=== PATIENT | male | born 1975 | race Caucasian/White ===

== ENCOUNTER 2017-01-09 20:19 | Emergency (ER) | payer MEDICAID, MEDICARE, OTHER ==
[~2017-01-09] VITALS: Ht 175.3 cm; Wt 70.0 kg
[~2017-01-09 20:19] MED LIST: ARIP1TAB12 PO; BENZ1 PO
[2017-01-09 20:21] VITALS: BP 163/94; PULSE 92; RESP 16; TEMP 99.3; O2SAT 98
--- NOTE | 2017-01-09 21:33 | PD ---
Physical Exam Date Seen by Provider: Jan 09, 2017 Time Seen by Provider: 21:31 Narrative 41 yo male here for evaluation of fever. Going on since yesterday. States feels like chills, possibly dehydrated per patient. Urine is dark. Fatigued. Nauseous and has vomited a couple of times. No pain. No sick contacts. Vitals sign stable. Patient awaiting bed placement. Data Data Last Documented VS Vital Signs Date Time Temp Pulse Resp B/P Pulse Ox O2 Delivery O2 Flow Rate FiO2 01/09/17 20:21 99.3 92 16 163/94 98 Room Air [facility] Medical Record Reviewed: Yes Supervised Visit with SANDOVAL: Yoni Shelley Jan 09, 2017 21:33
[2017-01-10] MEDS ORDERED: BACT800T5 PO (17:05)
[2017-01-10] MEDS ORDERED: MUPI2%T TOPICAL (17:05)
== END 2017-01-09 23:22 | disposition left against medical advice (07) ==
LOC: NED 20:19
DX: R50.9 Fever, unspecified (principal)
CPT/HCPCS: 99281

== ENCOUNTER 2017-01-10 15:37 | Emergency (ER) | payer MEDICARE, OTHER ==
[~2017-01-10] VITALS: Ht 177.8 cm; Wt 80.0 kg
[2017-01-10 15:39] VITALS: BP 154/96; PULSE 96; RESP 16; TEMP 98.6; O2SAT 98
[2017-01-10] MEDS ORDERED: BACT800T5 PO (17:05)
[2017-01-10] MEDS ORDERED: MUPI2%T TOPICAL (17:05)
--- NOTE | 2017-01-10 17:05 | PD ---
HPI Chief Complaint: Skin Problem Time Seen by Provider: 16:51 Travel History International Travel<30 days: No Contact w/Intl Traveler<30days: No Traveled to known affect area: No History of Present Illness HPI 41-year-old male presents emergency Department with 2 small skin abscesses to the right index finger and left first phalanx PIP knuckle. Patient states that he drained himself with a pin with pus draining from them earlier today. He is here again and checked to see if they need some more drainage or antibiotics. He has no significant pain. He has no fever, chills, or history of MRSA in the past. She states it started about a week ago after working on a toilet. He is allergic to Haldol, haloperidol, Risperdal, Tegretol. PFSH Past Medical History Bipolar Disorder: Yes Cardiovascular Problems: No Diabetes: No Diminished Hearing: No Musculoskeletal: Yes (REPORTS LEFT ARM DISABILITY) Immunizations Current: Yes Schizophrenia: Yes Past Surgical History Appendectomy: Yes Social History Alcohol Use: Yes Tobacco Use: Yes Substance Use: Yes Allergies-Medications (Allergen,Severity, Reaction): Coded Allergies: Haldol (Verified Allergy, Severe, resp distress, tongue swells, 01/09/17) Tegretol (Verified Allergy, Intermediate, SOB, 01/09/17) Haloperidol (Unverified Allergy, Unknown, 01/09/17) Risperdal (Unverified Allergy, Unknown, 01/09/17) Uncoded Allergies: UNKNOWN MEDS (Adverse Reaction, Intermediate, PSYCH MEDS-UNKNOWN, 10/03/13) Reported Meds & Prescriptions Reported Meds & Active Scripts Active Benztropine Mesylate 1 Mg Tab 1 Mg PO Q12HR PRN Aripiprazole 10 Mg Tab 10 Mg PO DAILY 15 Days Review of Systems Except as stated in HPI: all other systems reviewed are Neg General / Constitutional: No: Fever Eyes: No: Visual changes HENT: No: Headaches Cardiovascular: No: Chest Pain or Discomfort Respiratory: No: Shortness of Breath Gastrointestinal: No: Abdominal Pain Genitourinary: No: Dysuria Musculoskeletal: No: Pain Skin: No Rash Neurologic: No: Weakness Psychiatric: No: Depression Endocrine: No: Polydipsia Hematologic/Lymphatic: No: Easy Bruising Physical Exam Narrative GENERAL: Patient appears no acute distress. SKIN: Warm and dry. Patient is a hard superficial inclusion cyst to the right MP joint on the right second phalanx. There is no obvious abscess or pointing. Area was explored with a #11 blade without obvious drainage. Patient has secondary similar cyst to the left dorsal PIP joint of the second phalanx which again was explored with a #11 blade without expressible pus. HEAD: Atraumatic. Normocephalic. EYES: Pupils equal and round. No scleral icterus. No injection or drainage. ENT: No nasal bleeding or discharge. Mucous membranes pink and moist. Pharynx is clear. NECK: Trachea midline and neck is supple. CARDIOVASCULAR: Regular rate and rhythm. RESPIRATORY: No accessory muscle use. Clear to auscultation. Breath sounds equal bilaterally. MUSCULOSKELETAL: Extremities without clubbing, cyanosis, or edema. No obvious deformities. NEUROLOGICAL: Awake and alert. No obvious cranial nerve deficits. Motor grossly within normal limits. Five out of 5 muscle strength in the arms and legs. Normal speech. PSYCHIATRIC: Appropriate mood and affect; insight and judgment normal. Data Data Last Documented VS Vital Signs Date Time Temp Pulse Resp B/P Pulse Ox O2 Delivery O2 Flow Rate FiO2 01/10/17 15:39 98.6 96 16 154/96 98 MDM Medical Decision Making Medical Screen Exam Complete: Yes Emergency Medical Condition: Yes Differential Diagnosis Inclusion cyst. Cellulitis. Abscess. Narrative Course Patient will be treated with Bactrim DS twice a day 7 days. Patient also use Bactroban ointment to the lesions twice daily as discussed. Patient follow-up as needed. Diagnosis Primary Impression: Abscess Referrals: [facility] [address] Patient Instructions: General Instructions Additional Instructions: Patient will be treated with Bactrim DS twice a day 7 days. Patient also use Bactroban ointment to the lesions twice daily as discussed. Patient follow-up as needed. Med/Other Pt SpecificInfo: Prescription(s) given Disposition: DISCHARGE HOME Condition: Stable Tom Royal Jan 10, 2017 17:05
== END 2017-01-10 17:26 | disposition home or self-care (01) ==
LOC: NEPK 15:37
DX: L02.511 Cutaneous abscess of right hand (principal); Z72.0 Tobacco use
CPT/HCPCS: 99284

== ENCOUNTER 2017-01-19 09:57 | Emergency (ER) | payer MEDICARE, OTHER ==
[~2017-01-19] VITALS: Ht 175.3 cm; Wt 78.0 kg
[~2017-01-19 09:57] MED LIST changes: +BACT800T5 PO; +MUPI2%T TOPICAL
[2017-01-19 10:00] VITALS: BP 139/98; PULSE 98; RESP 16; TEMP 99.4; O2SAT 96
--- NOTE | 2017-01-19 10:40 | PD ---
HPI Chief Complaint: Skin Problem Time Seen by Provider: 10:35 Travel History International Travel<30 days: No Contact w/Intl Traveler<30days: No Traveled to known affect area: No History of Present Illness HPI 41-year-old male presents to our department with generalized itchy rash since this morning. Patient states she was doing some yard work yesterday and may be having a reaction to something he came in contact 2. Patient also is complaining of a dental pain in the #13 tooth which is been bothersome for the past couple of days. He denies fever, chills, or other symptoms. Patient was recently treated for possible abscess to the right index finger which is improved. He is allergic to Haldol, Risperdal, Tegretol, and many other mental health meds. He states she does not do well with narcotics. PFSH Past Medical History Bipolar Disorder: Yes Cardiovascular Problems: No Diabetes: No Diminished Hearing: No Musculoskeletal: Yes (REPORTS LEFT ARM DISABILITY) Immunizations Current: Yes Schizophrenia: Yes Past Surgical History Appendectomy: Yes Social History Alcohol Use: Yes Tobacco Use: Yes Substance Use: Yes Allergies-Medications (Allergen,Severity, Reaction): Coded Allergies: Haldol (Verified Allergy, Severe, resp distress, tongue swells, 01/19/17) Tegretol (Verified Allergy, Intermediate, SOB, 01/19/17) Haloperidol (Unverified Allergy, Unknown, 01/19/17) Risperdal (Unverified Allergy, Unknown, 01/19/17) Uncoded Allergies: UNKNOWN MEDS (Adverse Reaction, Intermediate, PSYCH MEDS-UNKNOWN, 10/03/13) Reported Meds & Prescriptions Reported Meds & Active Scripts Active Bactroban Topical (Mupirocin) 22 Gm Cream 1 Applic TOPICAL BID Bactrim DS (Sulfamethoxazole-Trimethoprim) 800-160 Mg Tab 1 Tab PO BID Benztropine Mesylate 1 Mg Tab 1 Mg PO Q12HR PRN Aripiprazole 10 Mg Tab 10 Mg PO DAILY 15 Days Review of Systems Except as stated in HPI: all other systems reviewed are Neg General / Constitutional: No: Fever Eyes: No: Visual changes HENT: Positive: Dental Difficulties, No: Headaches Cardiovascular: No: Chest Pain or Discomfort Respiratory: No: Shortness of Breath Gastrointestinal: No: Abdominal Pain Genitourinary: No: Dysuria Musculoskeletal: No: Pain Skin: Positive Rash, Positive Itching Neurologic: No: Weakness Psychiatric: No: Depression Endocrine: No: Polydipsia Hematologic/Lymphatic: No: Easy Bruising Physical Exam Narrative GENERAL: Patient is in no acute distress. SKIN: Warm and dry. Patient has generalized raised erythematous rash consistent with allergic dermatitis. HEAD: Atraumatic. Normocephalic. EYES: Pupils equal and round. No scleral icterus. No injection or drainage. ENT: No nasal bleeding or discharge. Mucous membranes pink and moist. Patient is missing his #13 tooth and has tenderness at the gingiva without signs of abscess currently. Pharynx is clear. Airway is patent. TMs are clear bilaterally. NECK: Trachea midline. Supple nontender without significant lymphadenopathy. No signs Steve angina. CARDIOVASCULAR: Regular rate and rhythm. RESPIRATORY: No accessory muscle use. Clear to auscultation. Breath sounds equal bilaterally. MUSCULOSKELETAL: Extremities without clubbing, cyanosis, or edema. No obvious deformities. NEUROLOGICAL: Awake and alert. No obvious cranial nerve deficits. Motor grossly within normal limits. Five out of 5 muscle strength in the arms and legs. Normal speech. PSYCHIATRIC: Appropriate mood and affect; insight and judgment normal. Data Data Last Documented VS Vital Signs Date Time Temp Pulse Resp B/P Pulse Ox O2 Delivery O2 Flow Rate FiO2 01/19/17 10:00 99.4 98 16 139/98 96 MDM Medical Decision Making Medical Screen Exam Complete: Yes Emergency Medical Condition: Yes Medical Record Reviewed: Yes Differential Diagnosis Dental pain. Dental abscess. Allergic dermatitis. Narrative Course Patient is medically stable at time of exam Patient is given amoxicillin 875 twice a day 10 days for his tooth. Patient is given ibuprofen 800 mg 3 times daily with food #30. Patient is given Benadryl 25 mg one every 6 hours when necessary rash. #30. Patient is to follow-up as needed. Diagnosis Primary Impression: Pain, dental Additional Impression: Dermatitis Referrals: [facility] Patient Instructions: Acute Rash (ED), Dental Abscess (ED), General Instructions Additional Instructions: Patient is given amoxicillin 875 twice a day 10 days for his tooth. Patient is given ibuprofen 800 mg 3 times daily with food #30. Patient is given Benadryl 25 mg one every 6 hours when necessary rash. #30. Patient is to follow-up as needed. Med/Other Pt SpecificInfo: Prescription(s) given Disposition: 01 DISCHARGE HOME Condition: Stable Tom Royal Jan 19, 2017 10:40
[2017-01-19] MEDS ORDERED: IBUP800T23 PO (10:42)
[2017-01-19] MEDS ORDERED: BENA25CA4 PO (10:42)
[2017-01-19] MEDS ORDERED: AMOX875T PO (10:42)
== END 2017-01-19 11:17 | disposition home or self-care (01) ==
LOC: NEPK 09:57
DX: K08.9 Disorder of teeth and supporting structures, unspecified (principal); L30.9 Dermatitis, unspecified; Z72.0 Tobacco use
CPT/HCPCS: 99284

== ENCOUNTER 2017-01-22 12:20 | Emergency (ER) | payer MEDICAID, MEDICARE ==
[~2017-01-22 12:20] MED LIST changes: +AMOX875T PO; -ARIP1TAB12 PO; -BACT800T5 PO; +BENA25CA4 PO; -BENZ1 PO; +IBUP800T23 PO; -MUPI2%T TOPICAL
[2017-01-22 12:22] VITALS: BP 163/93; PULSE 111; RESP 15; TEMP 98.2; O2SAT 99
== END 2017-01-22 13:04 | disposition left against medical advice (07) ==
LOC: NED 12:20
DX: S99.921A Unspecified injury of right foot, initial encounter (principal); X58.XXXA Exposure to other specified factors, initial encounter; Z53.21 Procedure and treatment not carried out due to patient leaving prior to being seen by health care provider
CPT/HCPCS: 99281

== ENCOUNTER 2017-01-23 00:34 | Emergency (ER) | payer MEDICARE ==
[~2017-01-23] VITALS: Ht 175.3 cm; Wt 75.2 kg
[2017-01-23 00:37] VITALS: BP 143/84; PULSE 105; RESP 16; TEMP 98.3; O2SAT 98
== END 2017-01-23 02:45 | disposition left against medical advice (07) ==
LOC: NED 00:34
DX: Z04.3 Encounter for examination and observation following other accident (principal); Z53.21 Procedure and treatment not carried out due to patient leaving prior to being seen by health care provider
CPT/HCPCS: 99281

== ENCOUNTER 2017-01-25 02:20 | Emergency (ER) | payer MEDICARE ==
[~2017-01-25] VITALS: Ht 175.3 cm; Wt 75.0 kg
[2017-01-25 02:21] VITALS: BP 128/79; PULSE 103; RESP 16; TEMP 98.6; O2SAT 96
[2017-01-25] MEDS ORDERED: TETANUS/DIPHTHERIA TOXOID ADULT 0.5 ML VIAL IM ONE (03:00)
--- NOTE | 2017-01-25 03:29 | PD ---
HPI Chief Complaint: Skin Problem Time Seen by Provider: 02:45 Travel History International Travel<30 days: No Contact w/Intl Traveler<30days: No Traveled to known affect area: No History of Present Illness HPI Patient is a 41-year-old male presenting to the emergency department for evaluation of right first toe pain after dropping a gas can on it today. He also presents stating he stepped on a nail 36 hours ago. He reports his last tetanus vaccine was in 2010, the pain in his toe is a 4 out of 10, patient has not taken any medications to alleviate the pain. He is currently on amoxicillin due to an infection in his tooth. He was seen for the tooth pain 2 days ago. He has no other complaints at this time. PFSH Past Medical History Bipolar Disorder: Yes Cardiovascular Problems: No Diabetes: No Diminished Hearing: No Musculoskeletal: Yes (REPORTS LEFT ARM DISABILITY) Immunizations Current: Yes Schizophrenia: Yes Tetanus Vaccination: < 5 Years Influenza Vaccination: No Past Surgical History Appendectomy: Yes (1981) Social History Alcohol Use: Yes (social) Tobacco Use: Yes Substance Use: Yes Allergies-Medications (Allergen,Severity, Reaction): Coded Allergies: Haldol (Verified Allergy, Severe, resp distress, tongue swells, 01/25/17) Tegretol (Verified Allergy, Intermediate, SOB, 01/25/17) Haloperidol (Unverified Allergy, Unknown, 01/25/17) Risperdal (Unverified Allergy, Unknown, 01/25/17) Uncoded Allergies: UNKNOWN MEDS (Adverse Reaction, Intermediate, PSYCH MEDS-UNKNOWN, 10/03/13) Reported Meds & Prescriptions Reported Meds & Active Scripts Active Amoxicillin 875 Mg Tab 875 Mg PO BID Review of Systems Except as stated in HPI: all other systems reviewed are Neg Musculoskeletal: Positive: Pain Skin: Positive Change in Pigmentation Physical Exam Narrative GENERAL: Well-nourished, well-developed patient. SKIN: Focused skin assessment warm/dry. HEAD: Normocephalic. EYES: No scleral icterus. No injection or drainage. NECK: Supple, trachea midline. No JVD or lymphadenopathy. CARDIOVASCULAR: Regular rate and rhythm without murmurs, gallops, or rubs. RESPIRATORY: Breath sounds equal bilaterally. No accessory muscle use. GASTROINTESTINAL: Abdomen soft, non-tender, nondistended. MUSCULOSKELETAL: No cyanosis, mild edema and ecchymosis to the dorsal aspect of the right first toe. There appears to be a puncture wound to the plantar aspect on the ball of the right foot. No erythema or drainage noted, nontender to palpation. BACK: Nontender without obvious deformity. No CVA tenderness. Data Data Last Documented VS Vital Signs Date Time Temp Pulse Resp B/P Pulse Ox O2 Delivery O2 Flow Rate FiO2 01/25/17 02:47 20 01/25/17 02:21 98.6 103 128/79 96 Room Air Orders Tetanus/Diphtheria Tox Adult (Tetanus/Di (01/25/17 03:00) Foot, Complete ([id number]) (01/25/17 03:06) [facility] Medical Decision Making Medical Screen Exam Complete: Yes Emergency Medical Condition: Yes Interpretation(s) Vital Signs Date Time Temp Pulse Resp B/P Pulse Ox O2 Delivery O2 Flow Rate FiO2 01/25/17 02:47 20 01/25/17 02:21 98.6 103 16 128/79 96 Room Air Differential Diagnosis Contusion versus fracture versus retained foreign body versus cellulitis versus Narrative Course Patient is a 41-year-old male presenting for evaluation after he stepped on a nail and dropped a gas can on his big toe. Patient's vital signs are stable, his tetanus vaccine was updated today. He is currently taking amoxicillin due to a dental infection. The nail allegedly went through the sole of the shoe, patient will be prescribed ciprofloxacin. Patient was encouraged to rest, ice, elevate extremity. He was advised that there are no acute findings on his x- ray. He is encouraged to follow-up with his primary doctor or at the [facility]. He was encouraged to return to emergency department for any new or worsening symptoms. Patient is stable for discharge Diagnosis Primary Impression: Contusion, toe Qualified Code: S90.111A - Contusion of right great toe without damage to nail , initial encounter Additional Impression: Puncture wound Referrals: [facility] Primary Care Physician Patient Instructions: Foot Contusion (ED), General Instructions, Puncture Wound (ED) Additional Instructions: Follow-up with your primary doctor or at the [facility] Take medications as directed Continue amoxicillin as previously prescribed Rest, ice, elevate extremity Return to emergency department for any new or worsening symptoms Med/Other Pt SpecificInfo: Prescription(s) given Scripts Ciprofloxacin 500 Mg Fdc404 Mg PO BID 7 Days Ref 0 Prov:Alem Gallo 01/25/17 Disposition: 01 DISCHARGE HOME Condition: Stable Alem Gallo Jan 25, 2017 03:29
--- NOTE | 2017-01-25 03:52 | RADRPT ---
EXAM DATE/TIME: 01/25/2017 02:58 [facility] COMPARISON: No previous studies available for comparison. INDICATIONS : Right foot pain stepped on nail with 1st toe. MEDICAL HISTORY : None. SURGICAL HISTORY : None. ENCOUNTER: Initial ACUITY: 1 day PAIN SCORE: 0/10 LOCATION: Right foot FINDINGS: Three view examination of the right foot demonstrates no soft tissue swelling, dislocation, or fractu re. The tarsal bones appear intact. The interphalangeal and metatarsophalangeal joints are intact. The calcaneus is intact. Bony mineralization is normal. CONCLUSION: No evidence of recent bone injury. No radiopaque foreign bodies. Meet Mchugh MD on January 25, 2017 at 3:49 Board Certified Radiologist. This report was verified electronically.
[2017-01-25] MEDS ORDERED: CIPR500T2 PO (04:09)
== END 2017-01-25 06:50 | disposition home or self-care (01) ==
LOC: NEPD 02:20
DX: S90.111A Contusion of right great toe without damage to nail, initial encounter (principal); S91.131A Puncture wound without foreign body of right great toe without damage to nail, initial encounter; F31.9 Bipolar disorder, unspecified; F20.9 Schizophrenia, unspecified; Z72.0 Tobacco use; Z23 Encounter for immunization; Z88.5 Allergy status to narcotic agent; Z88.8 Allergy status to other drugs, medicaments and biological substances; W22.8XXA Striking against or struck by other objects, initial encounter
CPT/HCPCS: 73630; 90471; 90714

== ENCOUNTER 2017-01-27 15:27 | Emergency (ER) | payer MEDICARE ==
[~2017-01-27] VITALS: Ht 177.8 cm; Wt 75.0 kg
[~2017-01-27 15:27] MED LIST changes: -BENA25CA4 PO; +CIPR500T2 PO; -IBUP800T23 PO
[2017-01-27 15:29] VITALS: BP 124/85; PULSE 114; RESP 16; TEMP 98.3; O2SAT 98
--- NOTE | 2017-01-27 15:41 | PD ---
Physical Exam Time Seen by Provider: 15:39 Narrative 41 y/o male here for psychiatric evaluation. Vital signs reviewed. Seen at triage desk. Awaiting bed placement. Data Data Last Documented VS Vital Signs Date Time Temp Pulse Resp B/P Pulse Ox O2 Delivery O2 Flow Rate FiO2 01/27/17 15:29 98.3 114 16 124/85 98 MDM Medical Record Reviewed: Yes Supervised Visit with SANDOVAL: No Mario Alberto Wesley Jan 27, 2017 15:41
--- NOTE | 2017-01-27 16:11 | PD ---
HPI Chief Complaint: Psychiatric Symptoms Time Seen by Provider: 16:03 Travel History International Travel<30 days: No Contact w/Intl Traveler<30days: No Traveled to known affect area: No History of Present Illness HPI Patient is a 41-year-old male with history of bipolar disorder, anxiety depression here for voluntary psychiatric evaluation. Patient states that his father committed suicide approximately 10 years ago. Patient states that he now believes that his father was murdered in his family has been hiding it from him. He denies having any psychiatric history despite the above-mentioned disorders noted in his past medical history. He is not currently on any home medications and denies any medical complaints. He admits to occasionally having issues with anxiety and using marijuana to "take the edge off". PFSH Past Medical History Bipolar Disorder: Yes Anxiety: Yes Depression: Yes Cardiovascular Problems: No Diabetes: No Diminished Hearing: No Musculoskeletal: Yes Psychiatric: Yes Immunizations Current: Yes Pneumonia: Yes Schizophrenia: Yes Past Surgical History Appendectomy: Yes (1981) Social History Alcohol Use: Yes (SOCIALLY) Tobacco Use: Yes (1-1.5 PPD) Substance Use: Yes ([facility]) Allergies-Medications (Allergen,Severity, Reaction): Coded Allergies: Haldol (Verified Allergy, Severe, resp distress, tongue swells, 01/27/17) Thorazine (Verified Allergy, Severe, 01/27/17) "causes my body to lock up" Tegretol (Verified Allergy, Intermediate, SOB, 01/27/17) Haloperidol (Unverified Allergy, Unknown, 01/27/17) Risperdal (Unverified Allergy, Unknown, 01/27/17) Uncoded Allergies: UNKNOWN MEDS (Adverse Reaction, Intermediate, PSYCH MEDS-UNKNOWN, 10/03/13) Reported Meds & Prescriptions Reported Meds & Active Scripts Active Ciprofloxacin (Ciprofloxacin HCl) 500 Mg Tab 500 Mg PO BID 7 Days Amoxicillin 875 Mg Tab 875 Mg PO BID Review of Systems Except as stated in HPI: all other systems reviewed are Neg Physical Exam Narrative GENERAL: Well-appearing middle-aged male in no acute distress SKIN: Focused skin assessment warm/dry. HEAD: Normocephalic. EYES: No scleral icterus. No injection or drainage. ENT: Mucous membranes pink and moist. NECK: Supple CARDIOVASCULAR: Regular rate and rhythm. RESPIRATORY: No accessory muscle use. GASTROINTESTINAL: Abdomen soft, non-tender, nondistended. MUSCULOSKELETAL: Moves all extremity's normally NEUROLOGICAL: Awake and alert. No obvious cranial nerve deficits. Motor grossly within normal limits. Normal speech. PSYCHIATRIC: Blunted mood and affect. Good eye contact. Patient seems delusional with this fixed delusion that his father was murdered. He does not respond to any obvious internal stimuli. He denies homicidal ideation or suicidal ideation but does note occasionally feeling down or depressed. Data Data Last Documented VS Vital Signs Date Time Temp Pulse Resp B/P Pulse Ox O2 Delivery O2 Flow Rate FiO2 01/27/17 15:29 98.3 114 16 124/85 98 Orders Psych Screen (01/27/17 16:04) Drug Screen, Random Urine (01/27/17 16:04) [facility] Medical Decision Making Medical Screen Exam Complete: Yes Emergency Medical Condition: Yes Medical Record Reviewed: Yes Differential Diagnosis 41-year-old male with history of bipolar disorder and cannabis abuse here with delusions that his father was murdered and sedative committed suicide 10 years ago. Differential includes substance induced mood disorder, medication noncompliance, bipolar disorder, schizophrenia, depression, anxiety, delusional disorder NOS Narrative Course Patient last had laboratory workup 2 months ago that was unremarkable and he denies any medical complaints today. Patient was medically cleared for psychiatric evaluation pending urine drug screen. Diagnosis Primary Impression: Bipolar II disorder Fabienne Duran MD Jan 27, 2017 16:11
== END 2017-01-27 16:45 | disposition home or self-care (01) ==
LOC: NEPD 15:27
DX: F31.81 Bipolar II disorder (principal); F12.10 Cannabis abuse, uncomplicated; F20.9 Schizophrenia, unspecified; F31.9 Bipolar disorder, unspecified; F41.9 Anxiety disorder, unspecified; F17.200 Nicotine dependence, unspecified, uncomplicated; Z79.899 Other long term (current) drug therapy; Z88.5 Allergy status to narcotic agent; Z88.8 Allergy status to other drugs, medicaments and biological substances
CPT/HCPCS: 99283

== ENCOUNTER 2017-02-14 00:36 | Emergency (ER) | payer MEDICARE, MEDICAID ==
[~2017-02-14] VITALS: Ht 175.3 cm; Wt 78.0 kg
[2017-02-14 00:40] VITALS: BP 122/75; PULSE 84; RESP 16; TEMP 98.4; O2SAT 97
[2017-02-14] MEDS ORDERED: AMOX500C PO (01:00)
--- NOTE | 2017-02-14 01:39 | PD ---
HPI Chief Complaint: GI Complaint Time Seen by Provider: 01:29 Travel History International Travel<30 days: No Contact w/Intl Traveler<30days: No Traveled to known affect area: No History of Present Illness HPI 41-year-old man presents emergent department claiming of a bump and rise on his back. Been a couple days. Been more sore and irritated. He also states she's been sick with chills and vomiting. History Past Medical History Medical History: Denies Significant Hx Social History Alcohol Use: Yes (occ.) Tobacco Use: Yes (1-2 ppd) Allergies-Medications (Allergen,Severity, Reaction): Coded Allergies: Haldol (Verified Allergy, Severe, resp distress, tongue swells, 01/27/17) Thorazine (Verified Allergy, Severe, 01/27/17) "causes my body to lock up" Tegretol (Verified Allergy, Intermediate, SOB, 01/27/17) Haloperidol (Unverified Allergy, Unknown, 01/27/17) Risperdal (Unverified Allergy, Unknown, 01/27/17) Uncoded Allergies: UNKNOWN MEDS (Adverse Reaction, Intermediate, PSYCH MEDS-UNKNOWN, 10/03/13) Reported Meds & Prescriptions Reported Meds & Active Scripts Active Reported Amoxicillin 500 Mg Cap 500 Mg PO Q6HR Review of Systems Except as stated in HPI: all other systems reviewed are Neg Physical Exam Narrative GENERAL: 41-year-old man, SKIN: Warm and dry. CARDIOVASCULAR: Warm and well perfused. RESPIRATORY: Normal rate and effort. MUSCULOSKELETAL: He is a small pustule on his back. NEUROLOGICAL: Awake and alert. No gross deficits. Data Data Last Documented VS Vital Signs Date Time Temp Pulse Resp B/P Pulse Ox O2 Delivery O2 Flow Rate FiO2 02/14/17 00:40 98.4 84 16 122/75 97 MDM Medical Decision Making Medical Screen Exam Complete: Yes Emergency Medical Condition: Yes Differential Diagnosis Pustule, ingrown hair, cyst, other Narrative Course Medical decision making 41-year-old man presents emergent from with pustule on his back. States is been irritating him. Procedures Procedure Narrative Drainage: Areas prepped with alcohol. 14-gauge needle was used to stab the area. A very small amount of white discharge was expressed. Diagnosis Primary Impression: Pustule Additional Instructions: Apply warm compresses to the area 4 times a day. Apply antibiotic ointment and a bandage to the area to keep it moist. Return to the emergency department for any new or worsening symptoms. Med/Other Pt SpecificInfo: No Change to Meds Disposition: 01 DISCHARGE HOME Condition: Stable Lukas Yang MD Feb 14, 2017 01:39
== END 2017-02-14 02:00 | disposition home or self-care (01) ==
LOC: NEPE 00:36
DX: L08.9 Local infection of the skin and subcutaneous tissue, unspecified (principal); F17.200 Nicotine dependence, unspecified, uncomplicated; Z88.5 Allergy status to narcotic agent; Z88.8 Allergy status to other drugs, medicaments and biological substances; Z79.899 Other long term (current) drug therapy
CPT/HCPCS: 10060; 99282

== ENCOUNTER 2017-02-20 09:49 | Emergency (ER) | payer MEDICARE, MEDICAID ==
[~2017-02-20] VITALS: Ht 172.7 cm; Wt 70.0 kg
[~2017-02-20 09:49] MED LIST changes: +AMOX500C PO; -AMOX875T PO; -CIPR500T2 PO
[2017-02-20 09:51] VITALS: BP 126/75; PULSE 74; RESP 20; TEMP 98.2; O2SAT 98
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
== END 2017-02-20 10:38 | disposition home or self-care (01) ==
LOC: NEPK 09:49
DX: T20.16XA Burn of first degree of forehead and cheek, initial encounter (principal); F31.9 Bipolar disorder, unspecified; F41.9 Anxiety disorder, unspecified; F20.9 Schizophrenia, unspecified; F17.200 Nicotine dependence, unspecified, uncomplicated; X08.8XXA Exposure to other specified smoke, fire and flames, initial encounter; Z88.5 Allergy status to narcotic agent
CPT/HCPCS: 99282

== ENCOUNTER 2017-05-29 00:16 | Emergency (ER) | payer MEDICARE, MEDICAID ==
[~2017-05-29] VITALS: Ht 172.7 cm; Wt 78.0 kg
[2017-05-29 00:21] VITALS: BP 142/87; PULSE 74; RESP 16; TEMP 98.1; O2SAT 98
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
[2017-05-29] MEDS ORDERED: IBUP-232 PO (01:12)
[2017-05-29] MEDS ORDERED: IBUPROFEN 800 MG TAB PO ONE (01:15)
--- NOTE | 2017-05-29 01:18 | RADRPT ---
EXAM DATE/TIME: 05/29/2017 01:47 [facility] COMPARISON: No previous studies available for comparison. INDICATIONS : Pt would not give history- Pain to MCP, each digit MEDICAL HISTORY : None. SURGICAL HISTORY : None. ENCOUNTER: Initial ACUITY: 1 day PAIN SCORE: 7/10 LOCATION: Right Hand FINDINGS: Three view examination of the right hand demonstrates no soft tissue swelling, dislocation, or fractu re. The carpal bones appear intact. The interphalangeal and metacarpophalangeal joints are intact. Bony mineralization is normal. CONCLUSION: Unremarkable examination of the right hand. Imer Sierra MD on May 29, 2017 at 1:13 Board Certified Radiologist. This report was verified electronically.
== END 2017-05-29 01:26 | disposition home or self-care (01) ==
LOC: NEPD 00:16
DX: S60.221A Contusion of right hand, initial encounter (principal); F31.9 Bipolar disorder, unspecified; F41.9 Anxiety disorder, unspecified; J44.9 Chronic obstructive pulmonary disease, unspecified; F20.9 Schizophrenia, unspecified; F17.200 Nicotine dependence, unspecified, uncomplicated; Y04.8XXA Assault by other bodily force, initial encounter
CPT/HCPCS: 73130; 99283

== ENCOUNTER 2017-06-07 04:09 | Emergency (ER) | payer MEDICARE, MEDICAID ==
[~2017-06-07] VITALS: Ht 172.7 cm; Wt 75.0 kg
[~2017-06-07 04:09] MED LIST changes: +IBUP-232 PO
[2017-06-07 04:13] VITALS: BP 122/83; PULSE 80; RESP 16; TEMP 98.5; O2SAT 97
--- NOTE | 2017-06-07 04:46 | PD ---
HPI Chief Complaint: Bite or Sting Time Seen by Provider: 04:40 Travel History International Travel<30 days: No Contact w/Intl Traveler<30days: No Traveled to known affect area: No History of Present Illness HPI Patient comes in for evaluation of a dog bite to his left medial thigh that occurred almost 2 weeks ago. Patient states he's been cleaning it, but was concerned as he still having some soreness around the bite. Patient denies any fevers, nausea, vomiting, or radiation of the pain. Reports his tetanus shot is up-to-date. Patient reports only has tenderness to palpation. Denies anything making it better or worse. Denies any difficulty ambulating. Patient reports dog was a neighborhood dog, he is not concerned about rabies, and does not want prophylaxis treatment. Reports his tetanus shot is up-to-date. PFSH Past Medical History Bipolar Disorder: Yes Anxiety: Yes Depression: Yes Cardiovascular Problems: No Diabetes: No Diminished Hearing: No Musculoskeletal: Yes Psychiatric: Yes Respiratory: Yes (COPD) Immunizations Current: Yes Pneumonia: Yes Schizophrenia: Yes Tetanus Vaccination: < 5 Years Influenza Vaccination: No Past Surgical History Appendectomy: Yes (1981) Social History Alcohol Use: Yes (occ.) Tobacco Use: Yes (1-2 ppd) Substance Use: Yes (marijuana daily) Allergies-Medications (Allergen,Severity, Reaction): Coded Allergies: chlorpromazine (Unverified Allergy, Severe, 06/07/17) "causes my body to lock up" carbamazepine (Unverified Allergy, Intermediate, SOB, 06/07/17) haloperidol (Unverified Allergy, Unknown, 06/07/17) risperidone (Unverified Allergy, Unknown, 06/07/17) Uncoded Allergies: UNKNOWN MEDS (Adverse Reaction, Intermediate, PSYCH MEDS-UNKNOWN, 10/03/13) Reported Meds & Prescriptions Reported Meds & Active Scripts Active No Active Prescriptions or Reported Medications Review of Systems Except as stated in HPI: all other systems reviewed are Neg Physical Exam Narrative GENERAL: Well-developed, well nourished, in no acute distress, and non-ill appearing. SKIN: Well-healing dog bite left medial thigh with healing ecchymosis. Patient reports tenderness to palpation. There is no crepitus, fluctuation, drainage, or other signs of infection. HEAD: Atraumatic. Normocephalic. EYES: Pupils equal and round. EOMI. No scleral icterus. No injection or drainage. ENT: No nasal bleeding or discharge. Mucous membranes pink and moist. NECK: Trachea midline. Supple. No nuclear rigidity. RESPIRATORY: No accessory muscle use. No respiratory distress. MUSCULOSKELETAL: No obvious deformities. No clubbing. No cyanosis. No edema. Full range of motion. Normal gait. NEUROLOGICAL: Awake and alert. No obvious cranial nerve deficits. Motor grossly within normal limits. Normal speech. PSYCHIATRIC: Appropriate mood and affect; insight and judgment normal. Data Data Last Documented VS Vital Signs Date Time Temp Pulse Resp B/P (MAP) Pulse Ox O2 Delivery O2 Flow Rate FiO2 06/07/17 05:08 06/07/17 04:13 98.5 80 16 97 Orders Orders Ed Discharge Order (06/07/17 04:47) [facility] Medical Decision Making Medical Screen Exam Complete: Yes Emergency Medical Condition: No Differential Diagnosis Wound check, wound infection, bite, abscess, cellulitis, other Narrative Course Patient in no obvious distress upon re-evaluation. Any questions/concerns in reference to patient diagnosis/condition discussed and clarified prior to patient's discharge. Reinforced sheer importance of close follow up with patient 's primary physician or primary care clinic. Instructed patient to return to ED immediately, if symptoms return/worsen. Patient showed understanding of above instructions. Further instructions and recommendations were detailed in discharge paperwork. Patient ambulated without difficulty out of ED at discharge. Diagnosis Primary Impression: Dog bite Qualified Codes: W54.0XXA - Bitten by dog, initial encounter Additional Impression: Visit for wound check Referrals: [facility] Patient Instructions: Acute Wound Care (DC), Animal Bite (ED), General Instructions Additional Instructions: Follow-up with your primary care physician next week for reevaluation. Keep wound dry and clean as possible using soap and water. Use Neosporin to promote healing. Return to the emergency department if symptoms get worse. Scripts No Active Prescriptions or Reported Meds Disposition: 01 DISCHARGE HOME Condition: Stable Pritesh López Jun 07, 2017 04:46
== END 2017-06-07 05:09 | disposition home or self-care (01) ==
LOC: NEPD 04:09
DX: S71.152D Open bite, left thigh, subsequent encounter (principal); W54.0XXD Bitten by dog, subsequent encounter
CPT/HCPCS: 99281

== ENCOUNTER 2017-07-07 02:16 | Emergency (ER) | payer MEDICARE, MEDICAID ==
[~2017-07-07] VITALS: Ht 172.7 cm; Wt 75.0 kg
[2017-07-07 02:18] VITALS: BP 127/78; PULSE 97; RESP 16; TEMP 97.9; O2SAT 97
[2017-07-07] MEDS ORDERED: DICL75TA PO (02:57)
--- NOTE | 2017-07-07 03:02 | PD ---
HPI Chief Complaint: Cold / Flu Symptoms Time Seen by Provider: 02:34 Travel History International Travel<30 days: No Contact w/Intl Traveler<30days: No Traveled to known affect area: No History of Present Illness HPI 42-year-old white male presents to emergency department with complains of back pain. He also states that he was concerned that he may have a lung problem because a [employer] nurse had difficulty hearing his lungs earlier today and felt that he did be evaluated. He states that he has a chronic cough from tobacco abuse. He does not feel short of breath. He has had no fever chills. No sputum production. No nausea vomiting. He denies any urinary symptoms. His pain in his back is mild. Worse with bending and moving. PFSH Past Medical History Bipolar Disorder: Yes Anxiety: Yes Depression: Yes Cardiovascular Problems: No COPD: Yes Diabetes: No Diminished Hearing: No Musculoskeletal: Yes Psychiatric: Yes Respiratory: Yes (COPD) Immunizations Current: Yes Pneumonia: Yes Schizophrenia: Yes Past Surgical History Appendectomy: Yes (1981) Social History Alcohol Use: Yes (occ.) Tobacco Use: Yes (1-2 ppd) Substance Use: Yes (marijuana daily) Allergies-Medications (Allergen,Severity, Reaction): Coded Allergies: chlorpromazine (Unverified Allergy, Severe, 07/07/17) "causes my body to lock up" carbamazepine (Unverified Allergy, Intermediate, SOB, 07/07/17) haloperidol (Unverified Allergy, Unknown, 07/07/17) risperidone (Unverified Allergy, Unknown, 07/07/17) Uncoded Allergies: UNKNOWN MEDS (Adverse Reaction, Intermediate, PSYCH MEDS-UNKNOWN, 10/03/13) Reported Meds & Prescriptions Reported Meds & Active Scripts Active Diclofenac Sodium DR (Diclofenac Sodium) 75 Mg Tabdr 75 Mg PO BID Review of Systems Except as stated in HPI: all other systems reviewed are Neg Physical Exam Narrative GENERAL: Well-developed, well-nourished in no acute distress. Nontoxic appearing. HEAD: Normocephalic, atraumatic. EYES: Pupils equal round and reactive. Extraocular motions intact. No scleral icterus. No injection or drainage. ENT: TMs clear without erythema. The external auditory canals clear. Nose: clear . Posterior pharynx is pink and moist. No tonsillar edema or exudate. Uvula midline. Airway patent. NECK: Trachea midline.Supple, nontender, moves head freely. No central bony tenderness or spasm. CARDIOVASCULAR: Regular rate and rhythm without murmurs, gallops, or rubs. RESPIRATORY: Clear to auscultation. Breath sounds equal bilaterally. No wheezes , rales, or rhonchi. GASTROINTESTINAL: Abdomen soft, non-tender, nondistended. No hepato-splenomegaly , or palpable masses. No guarding. EXTREMITIES: No clubbing, cyanosis, or edema. No joint tenderness, effusion, or edema noted. BACK: Bilateral para upper lumbar tenderness without deformity or crepitance. No flank tenderness. Data Data Last Documented VS Vital Signs Date Time Temp Pulse Resp B/P (MAP) Pulse Ox O2 Delivery O2 Flow Rate FiO2 07/07/17 02:40 97 16 97 Room Air 07/07/17 02:18 97.9 127/78 (94) MDM Medical Decision Making Medical Screen Exam Complete: Yes Emergency Medical Condition: Yes Medical Record Reviewed: Yes Differential Diagnosis MDM: High Differential diagnoses: Fracture, sprain, strain, pneumonia, pneumothorax Narrative Course Patient's lung exam is unremarkable. I can hear equal breath sounds bilaterally. I do not believe he needs an x-ray to confirm this. Patient complains of back pain which is reproducible. This is musculoskeletal in nature. Once again imaging is not necessary. Diagnosis Primary Impression: Acute back pain Qualified Codes: M54.5 - Low back pain Patient Instructions: General Instructions Additional Instructions: Rest. Ice for the next 3 days followed by heat . Voltaren. Stop smoking. Follow-up with a primary care doctor in one week. Return to the ER for emergencies. Med/Other Pt SpecificInfo: Prescription(s) given Scripts Diclofenac Sodium DR (Diclofenac Sodium DR) 75 Mg Tabdr 75 MG PO BID, #14 TAB 0 Refills Prov: Vinh Hoskins MD 07/07/17 Disposition: 01 DISCHARGE HOME Condition: Stable Jaziel Helms Jul 07, 2017 03:02
== END 2017-07-07 03:21 | disposition home or self-care (01) ==
LOC: NEPD 02:16
DX: M54.9 Dorsalgia, unspecified (principal); R05 Cough; F31.9 Bipolar disorder, unspecified; F41.9 Anxiety disorder, unspecified; J44.9 Chronic obstructive pulmonary disease, unspecified; F20.9 Schizophrenia, unspecified; F17.200 Nicotine dependence, unspecified, uncomplicated; Z79.899 Other long term (current) drug therapy; Z88.8 Allergy status to other drugs, medicaments and biological substances
CPT/HCPCS: 99283